=== PATIENT | female | born 1980 | race African-American/Black ===

== ENCOUNTER 2018-04-10 22:08 | Emergency (ER) | payer OTHER ==
[~2018-04-10] VITALS: Ht 165.1 cm; Wt 106.1 kg
[2018-04-10] MEDS ORDERED: ULTRAM 50MG TAB50 MG PO (23:38)
[2018-04-10 23:42] VITALS: BP 175/91
[2018-04-10] MEDS ORDERED: MOBIC7.5 MG PO (23:55)
[2018-04-10] MEDS ORDERED: NORCO 5-325 TA1 EACH PO (23:55)
== END 2018-04-11 00:22 | disposition home or self-care (01) ==
LOC: ER 22:08
DX: S40.022A Contusion of left upper arm, initial encounter (principal); S50.811A Abrasion of right forearm, initial encounter; M54.5 Low back pain; E11.9 Type 2 diabetes mellitus without complications; I10 Essential (primary) hypertension; V49.49XA Driver injured in collision with other motor vehicles in traffic accident, initial encounter; Y93.89 Activity, other specified; Y92.410 Unspecified street and highway as the place of occurrence of the external cause; Y99.8 Other external cause status